=== PATIENT | male | born 1995 | race Caucasian/White ===

== ENCOUNTER 2019-12-05 19:31 | Inpatient (IN) | payer BC ==
[~2019-12-05] VITALS: Ht 188 cm; Wt 100.0 kg
[~2019-12-05 19:31] MED LIST: BIAXIN500 MG PO; CLARITIN10 MG PO; MOTRIN800 MG PO
[2019-12-05 19:47] VITALS: BP 135/67
[2019-12-06] VITALS (7 sets, daily range): BP systolic 115–135; BP diastolic 53–79
[2019-12-06] MEDS ORDERED: PROTONIX40 MG PO (09:03)
[2019-12-06 09:53] LABS: BUN 18 mg/dl (7-24); CHLORIDE 109 mmol/L (98-107); CREATININE 0.92 mg/dL (0.70-1.30); POTASSIUM 4.1 mmol/L (3.5-5.1); SODIUM 140 mmol/L (136-145)
== END 2019-12-06 19:41 | disposition home or self-care (01) | DRG 392 ==
LOC: ED 19:31 → 5E 23:00 → EDHOLD 23:00 → 5E 12-06 00:11
PROVIDERS: ADMIT Internal Medicine
PROC: 0D738ZZ Dilation of Lower Esophagus, Via Natural or Artificial Opening Endoscopic (ICD-10-PCS; principal; 2019-12-06)
PROC: 0DB78ZX Excision of Stomach, Pylorus, Via Natural or Artificial Opening Endoscopic, Diagnostic (ICD-10-PCS; principal; 2019-12-06)
DX: K22.2 Esophageal obstruction (principal); T18.128A Food in esophagus causing other injury, initial encounter; K44.9 Diaphragmatic hernia without obstruction or gangrene; K20.9 Esophagitis, unspecified; K29.70 Gastritis, unspecified, without bleeding; X58.XXXA Exposure to other specified factors, initial encounter; Y93.89 Activity, other specified; Y92.89 Other specified places as the place of occurrence of the external cause; Z91.040 Latex allergy status; Y99.8 Other external cause status

== ENCOUNTER 2025-05-15 19:17 | Emergency (ER) | payer OTHER ==
[~2025-05-15 19:17] MED LIST changes: +PROTONIX40 MG PO
[2025-05-15 19:24] VITALS: BP 132/71
[2025-05-15] MEDS ORDERED: PREDNISONE20 M1 PO (19:34)
== END 2025-05-15 19:47 | disposition home or self-care (01) ==
LOC: ED 19:17
DX: L23.7 Allergic contact dermatitis due to plants, except food (principal); Z91.040 Latex allergy status